=== PATIENT | male | born 2000 | race Caucasian/White ===

== ENCOUNTER 2025-03-17 20:47 | Emergency (ER) | payer BC, SELFPAY ==
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
[2025-03-17 20:49] VITALS: BP 121/60; PULSE 51; RESP 16; TEMP 36.9; O2SAT 98
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
[2025-03-17 21:36] VITALS: BP 121/60; PULSE 51; RESP 16; TEMP 36.9; O2SAT 98
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
== END 2025-03-17 21:39 | disposition home or self-care (01) ==
LOC: ER 21:48
PROVIDERS: Emergency Provider Emergency Medicine
DX: S80.11XA Contusion of right lower leg, initial encounter (principal); V18.4XXA Pedal cycle driver injured in noncollision transport accident in traffic accident, initial encounter; Y93.55 Activity, bike riding
CPT/HCPCS: 99283; 73590

== ENCOUNTER 2025-05-04 20:05 | Emergency (ER) | payer BC, SELFPAY ==
[2025-05-04 20:07] VITALS: BP 129/67; PULSE 69; RESP 18; TEMP 37.2; O2SAT 96
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
[2025-05-04] MEDS: Acetaminophen 500 MG TAB 1000 MG PO (20:25)
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
== END 2025-05-04 21:56 | disposition home or self-care (01) ==
PROVIDERS: Emergency Provider Emergency Medicine
DX: S93.401A Sprain of unspecified ligament of right ankle, initial encounter (principal); V86.56XA Driver of dirt bike or motor/cross bike injured in nontraffic accident, initial encounter
CPT/HCPCS: 99283 ×2; 29515; 73610

== ENCOUNTER 2025-05-14 20:24 | Outpatient (CLI) | payer BC, SELFPAY ==
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
== END 2025-05-14 20:44 ==
LOC: DI 20:27
PROVIDERS: Visit Provider Family Medicine
DX: S93.401A Sprain of unspecified ligament of right ankle, initial encounter (principal); M12.571 Traumatic arthropathy, right ankle and foot; X58.XXXA Exposure to other specified factors, initial encounter
CPT/HCPCS: 73610

== ENCOUNTER 2025-06-10 17:47 | Emergency (ER) | payer BC, SELFPAY ==
[2025-06-10] VITALS (8 sets, daily range): BP systolic 120–145; BP diastolic 78–90; PULSE 42–61; RESP 15–19; TEMP 36.7–36.8; O2SAT 97–99
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
[2025-06-10 19:37] LABS: Abs Immature Grans 0.01 10^3/uL (0.0-0.06); HCT 41.6 % (40.0-50.0); HGB 13.5 g/dL (13.5-17.5); Immature Grans % 0.2 %; MCH 28.6 pg (27.0-33.0); MCHC 32.5 % (32.0-36.0); MCV 88 fL (80-95); MPV 9.1 fL (8.0-11.0); Platelet Count 166 10^3/uL (130-400); RBC 4.72 10^6/uL (4.36-5.78); RDW 12.7 % (11.8-14.1); RDW-SD 41.1 fL; WBC 5.11 10^3/uL (4.4-10.8)
[2025-06-10] MEDS: Omnipaque 350 MG/ML 100 ML BTL IJ (19:47)
[2025-06-10] MEDS: Normal Saline - Diluent 50 ML VIAL IJ (19:47)
[2025-06-10] MEDS: Normal Saline Flush 10 ML SYR IVP (19:48)
[2025-06-10 19:54] LABS: ALT 20 U/L (16-63); AST 24 U/L (15-37); Albumin 3.7 g/dL (3.4-5.0); Alkaline Phosphatase 71 U/L (46-116); Anion Gap 6.5 mmol/L (3-11); BUN 11 mg/dL (7-18); Bilirubin, Total 0.3 mg/dL (0.2-1.0); CO2 30.5 mmol/L (21.0-32.0); Calcium 8.5 mg/dL (8.5-10.1); Chloride 106 mmol/L (98-107); Estimated GFR 125.95 (mL/min/1.73m2); Glucose 100 mg/dL (74-106); Potassium 3.9 mmol/L (3.5-5.1); Sodium 143 mmol/L (136-145); Total Protein 6.9 g/dL (6.4-8.2)
[2025-06-10 20:02] LABS: Lipase 34 U/L (<78)
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
[2025-06-10 21:25] LABS: Troponin I 5 ng/L (<or=76)
[2025-06-10] MEDS: Ketorolac 10 MG TAB PO (21:57)
[2025-06-10] MEDS: Acetaminophen 500 MG TAB 1000 MG PO (21:58)
== END 2025-06-10 22:08 | disposition home or self-care (01) ==
PROVIDERS: Emergency Provider Physician Assistant
DX: S22.21XA Fracture of manubrium, initial encounter for closed fracture (principal); V86.56XA Driver of dirt bike or motor/cross bike injured in nontraffic accident, initial encounter
CPT/HCPCS: 99285; 99284; 74177; 80053; 83690; 93005; 71260; 84484; 85025; 93010; J3490

== ENCOUNTER 2025-06-19 22:34 | Emergency (ER) | payer BC, SELFPAY ==
[2025-06-19] VITALS (7 sets, daily range): BP systolic 126–135; BP diastolic 65–72; PULSE 55–63; RESP 20; TEMP 37.1; O2SAT 98–100
--- NOTE | 2025-06-19 22:45 | RT.EKG_ITS ---
APPROVED REPORT Exam: Resting ECG Reason for Exam: chest pain Patient Location: E HR:63 bpm ECG Measurements Heart Rate 63 AXIS VT 167 P 54 QRSd 103 QRS 70 QT 392 T 32 QTc 402 Conclusion Sinus rhythm...normal P axis, V-rate 60- 99 benign early repol no ST segment or T wave abnormalities to suggest occlusive [place]
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
[2025-06-19 23:15] LABS: Abs Immature Grans 0.02 10^3/uL (0.0-0.06); HCT 43.2 % (40.0-50.0); HGB 14.2 g/dL (13.5-17.5); Immature Grans % 0.2 %; MCH 28.8 pg (27.0-33.0); MCHC 32.9 % (32.0-36.0); MCV 88 fL (80-95); MPV 9.4 fL (8.0-11.0); Platelet Count 181 10^3/uL (130-400); RBC 4.93 10^6/uL (4.36-5.78); RDW 12.8 % (11.8-14.1); RDW-SD 41.0 fL; WBC 8.38 10^3/uL (4.4-10.8)
[2025-06-19] MEDS: oxyCODONE 5 MG TAB PO (23:19)
[2025-06-19 23:41] LABS: ALT 46 U/L (16-63); AST 22 U/L (15-37); Albumin 4.2 g/dL (3.4-5.0); Alkaline Phosphatase 79 U/L (46-116); Anion Gap 8.1 mmol/L (3-11); BUN 19 mg/dL (7-18); Bilirubin, Total 0.9 mg/dL (0.2-1.0); CO2 29.9 mmol/L (21.0-32.0); Calcium 8.9 mg/dL (8.5-10.1); Chloride 103 mmol/L (98-107); Estimated GFR 125.95 (mL/min/1.73m2); Glucose 126 mg/dL (74-106); Magnesium 2.2 mg/dL (1.8-2.4); NT-proBNP 12 pg/mL (<300); Potassium 3.5 mmol/L (3.5-5.1); Sodium 141 mmol/L (136-145); Total Protein 7.6 g/dL (6.4-8.2); Troponin I 4 ng/L (<or=76)
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
[2025-06-19] MEDS: Normal Saline Flush 10 ML SYR IVP (23:58)
[2025-06-19] MEDS: Normal Saline - Diluent 50 ML VIAL IJ (23:58)
[2025-06-19] MEDS: Omnipaque 350 MG/ML 100 ML BTL IJ (23:58)
[2025-06-20] VITALS (16 sets, daily range): BP systolic 132–141; BP diastolic 74–79; PULSE 54–71; O2SAT 97–99
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
[2025-06-20 00:48] LABS: COVID-19 PCR Negative (Negative); RSV PCR Negative (Negative)
[2025-06-20] MEDS: Albuterol HFA 8 GM 60 PUFF INH IH (01:27)
[2025-06-20] MEDS: oxyCODONE 15 MG TAB PO (02:06)
== END 2025-06-20 02:07 | disposition home or self-care (01) ==
PROVIDERS: Emergency Provider Student in an Organized Health Care Education/Training Program
DX: J40 Bronchitis, not specified as acute or chronic; S22.20XD Unspecified fracture of sternum, subsequent encounter for fracture with routine healing; V86.56XD Driver of dirt bike or motor/cross bike injured in nontraffic accident, subsequent encounter
CPT/HCPCS: 99284; 99285; 36415; 80053; 87637; 93005; 71260; 83735; 83880; 84484; 85025; 93010; J3490

== ENCOUNTER 2025-06-22 14:16 | Emergency (ER) | payer BC, SELFPAY ==
[2025-06-22 14:21] VITALS: BP 136/81; PULSE 68; RESP 18; TEMP 37.8; O2SAT 97
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
--- NOTE | 2025-06-22 15:00 | DI.CT_ITS ---
Exam(s) CT FACIAL W EXAM: CT FACIAL W CLINICAL HISTORY: Left facial swelling. TECHNIQUE: Imaging Protocol: Axial computed tomography images with coronal and sagittal reformatted images were created and reviewed CONTRAST MATERIAL: Intravenous: Omnipaque 350 Contrast volume:100 ml contrast route:IV - COMPARISON: No exams were available for comparison FINDINGS: Facial Bones: No fracture is noted in the facial bones. Significant dental disease, with multiple caries in the maxillary and mandibular teeth.. Sinuses and Mastoids: Mild mucosal thickening of the left maxillary sinus. Globes, extraocular muscles, optic nerves and retrobulbar fat: Normal. Upper aerodigestive tract: Normal. Mandible and bilateral temporomandibular joints: Normal. Soft tissues: There is a collection anterior to the left maxilla measuring proxy 1.5 cm suspicious for an abscess. No definite bony erosion. IMPRESSION: 1.5 centimeter abscess anterior to the left maxilla. Significant dental disease noted. The preliminary [facility] report was reviewed. RADIATION DOSE DELIVERED: 232.39mGy.cm Total DLP DATA REPOSITORY: All CT scans at this facility are submitted to the National Radiology Data Registry (NRDR) Dose Index Registry (DIR) with the [employer] (ACR). RADIATION OPTIMIZATION: All CT scans at this facility use at least one of these dose optimization techniques: automated exposure control; mA and/or kV adjustment per patient size (includes targeted exams where dose is matched to clinical indication); or iterative reconstruction.
[2025-06-22] MEDS: Normal Saline 1,000 ML 1000 ML IV (15:36)
[2025-06-22 15:38] LABS: Abs Immature Grans 0.01 10^3/uL (0.0-0.06); HCT 43.3 % (40.0-50.0); HGB 13.8 g/dL (13.5-17.5); Immature Grans % 0.1 %; MCH 28.5 pg (27.0-33.0); MCHC 31.9 % (32.0-36.0); MCV 89 fL (80-95); MPV 9.4 fL (8.0-11.0); Platelet Count 186 10^3/uL (130-400); RBC 4.85 10^6/uL (4.36-5.78); RDW 12.6 % (11.8-14.1); RDW-SD 41.5 fL; WBC 7.27 10^3/uL (4.4-10.8)
[2025-06-22] MEDS: Ketorolac 15 MG/ML VIAL IVP (15:38)
[2025-06-22] MEDS: AMPICILLIN/SULBACTAM 3 GM in Normal Saline 100 ML IVPB (15:48)
[2025-06-22 15:50] LABS: Anion Gap 7.9 mmol/L (3-11); BUN 13 mg/dL (7-18); CO2 31.1 mmol/L (21.0-32.0); Calcium 8.9 mg/dL (8.5-10.1); Chloride 102 mmol/L (98-107); Estimated GFR 125.95 (mL/min/1.73m2); Glucose 86 mg/dL (74-106); Potassium 3.7 mmol/L (3.5-5.1); Sodium 141 mmol/L (136-145)
[2025-06-22] MEDS: Omnipaque 350 MG/ML 100 ML BTL IJ (16:45)
[2025-06-22] MEDS: Normal Saline - Diluent 50 ML VIAL IJ (16:45)
[2025-06-22] MEDS: traMADol 50 MG TAB PO (17:06)
--- NOTE | 2025-06-22 17:09 | ED.PROG_ITS ---
Date of service: 06/22/25 Time of Service: 16:00 Medical Decision Making MDM: Summary: Patient presents to the emergency department was seen by Dr. Gerardo Dejesus and signed out to me for he comes in with left facial swelling due to a tooth abscess in the left upper molar. He was at [facility] emergency department where they attempted to drain it unsuccessfully and they discharged him home on amoxicillin. Here the previous provider gave him IV Unasyn and I gave him Toradol and Ultram with mild improvement of his symptoms. Pending a CT of the maxillofacial bones with contrast he was signed out to me. CT of the maxillofacial bones show a left maxillary subperiosteal abscess which is small 1 x 0.6 cm with severe odontogenic disease. I tried to refer him to [facility] at [facility] but his family reached out to his dentist and will see him tomorrow morning and they will drain the abscess. He will be placed on clindamycin. There is no evidence of orbital involvement or maxillary involvement or any signs of cellulitis. He will be discharged on clindamycin as well as Naprosyn and Ultram. Data Review Analysis All the data on this patient was reviewed by me including laboratory and imaging studies as well as bedside studies performed by me Independent review of Studies Imaging Lab: Labs are unremarkable he does not be white count Risk Stratification: Patient with a known to odontogenic abscess who will be discharged home on clindamycin and analgesics and he will follow-up tomorrow for drainage by the dentist. Differential Diagnosis: 1. Dental abscess 2. Periosteal abscess 3. Maxillary abscess 4. Tooth decay 5. Consultants: Shared disposition: Patient and family son disposition I advised the family that if for some reason the swelling increases he is to return to the emergency department immediately Impression: Medical Records Medical records reviewed: Yes I reviewed the patient's medical records. Lab Data Lab results reviewed: Yes I reviewed the patient's lab results. Exam Narrative Exam Narrative: Physical exam with left maxillary swelling as reported by previous provider Discharge Plan Disposition Patient Disposition: Home Condition: Improving Discharge Details Clinical Impression: Abscess, dental, Acute abscess of maxillary sinus Primary Care Provider: None,None ED Provider: Vincent Torrez Home Meds and New Rx's Prescriptions: New naproxen [Naprosyn] 500 mg tablet 500 mg PO BID Qty: 20 0RF clindamycin HCl [Cleocin HCl] 300 mg capsule 300 mg PO Q8H 7 Days Qty: 21 0RF tramadol 50 mg tablet 50 mg PO TID PRN (Reason: pain) Qty: 20 0RF Continued ibuprofen-acetaminophen [Advil Dual Action] 125-250 mg tablet 6 tab PO Q8H PRN (Reason: pain) oxycodone 5 mg capsule 5 mg PO Q6H PRNQty: 8 0RF Discontinued amoxicillin 500 mg capsule 500 mg PO Q8H Discharge Instructions Instructions: Tooth Abscess (DC), Abscess Incision and Drainage ED, Tooth Abscess ED Discharge Data Discharge Physician: Vincent Torrez
--- NOTE | 2025-06-22 17:53 | DI.VRAD_ITS ---
PROCEDURE INFORMATION: Exam: CT Maxillofacial With Contrast Exam date and time: 06/22/2025 4:40 PM Age: 25 years old Clinical indication: Other: Left facial swelling TECHNIQUE: Imaging protocol: Computed tomography of the face with contrast. Contrast material: 350; Contrast volume: 85 ml; Contrast route: INTRAVENOUS (IV); COMPARISON: No relevant prior studies available. FINDINGS: Paranasal sinuses: Mild mucoperiosteal thickening in the left maxillary sinus. Orbital cavities: Orbits are normal. Globes are unremarkable. Teeth: Odontogenic disease noted. Bones: There is a left maxillary subperiosteal fluid attenuation collection the left of midline measuring 1.5 x 0.6 cm series 2 images 86-60. Suspect small abscess. There is significant adjacent soft tissue swelling and subcutaneous edema. Soft tissues: See Bones finding. IMPRESSION: Concern for left maxillary subperiosteal abscess. Odontogenic disease noted. Dictated and Authenticated by: Rosa Meléndez MD. Orderin Shantelle Carrillo MD
[2025-06-22 19:12] VITALS: BP 132/81; PULSE 68; RESP 16; TEMP 37.3; O2SAT 99
== END 2025-06-22 19:15 | disposition home or self-care (01) ==
PROVIDERS: Emergency Medicine; Emergency Provider Emergency Medicine Emergency Medical Services
DX: J01.00 Acute maxillary sinusitis, unspecified (principal); K04.7 Periapical abscess without sinus
CPT/HCPCS: 99285; 99284; 36415; 96375; 00123; 80048; 80053; 87040; 96365; 70487; 83605; 85025; J0295; J1885; J3490